=== PATIENT | female | born 1990 | race Caucasian/White ===

== ENCOUNTER 2018-08-20 19:13 | Inpatient (IN) | payer OTHER ==
[2018-08-20] MEDS: KETOROLAC 30 MG INJ IV (21:15)
[2018-08-20] MEDS: SOD CHLORIDE 0.9% 1,000 ML IV ×2 (21:18→23:38)
[2018-08-20] MEDS ORDERED: ONDANSETRON 4 MG INJ IV (22:30)
[2018-08-20] MEDS ORDERED: NACL 0.9% 3 ML SYG IV (22:30)
[2018-08-21] MEDS ORDERED: CLINDAMYCIN 600 MG/D5W (PMX) 50 ML IVPB
[2018-08-21 00:31] LABS: ADD MAN DIFF? NO
[2018-08-21 00:34] LABS: BASOPHILS % 0.4 % (0.0-2.0); EOSINOPHILS # 0.1 10^3/ul (0.0-0.5); EOSINOPHILS % 2.2 % (0.0-7.0); HEMATOCRIT 35.7 % (37.0-47.0); HEMOGLOBIN 11.6 g/dl (12.0-16.0); LYMPHOCYTES # 1.5 10^3/ul (0.8-2.9); LYMPHOCYTES % 29.8 % (15.0-51.0); MEAN CORPUSCULAR HEMOGLOBIN 31.4 pg (29.0-33.0); MEAN CORPUSCULAR HGB CONC 32.5 g/dl (32.0-37.0); MEAN CORPUSCULAR VOLUME 96.7 fl (82.0-101.0); MEAN PLATELET VOLUME 9.9 fl (7.4-10.4); MONOCYTE # 0.6 10^3/ul (0.3-0.9); MONOCYTES % 12.4 % (0.0-11.0); NEUTROPHIL # 2.7 10^3/ul (1.6-7.5); NEUTROPHILS % 54.6 % (39.0-77.0); PLATELET COUNT 190 10^3/UL (140-415); RED BLOOD COUNT 3.69 10^6/ul (4.20-5.40); RED CELL DISTRIBUTION WIDTH 13.6 % (11.5-14.5)
[2018-08-21 00:34] LABS: WHITE BLOOD COUNT 4.9 10^3/ul (4.8-10.8)
[2018-08-21 00:55] LABS: PHOSPHORUS 3.3 mg/dl (2.5-4.9)
[2018-08-21] MEDS: CLINDAMYCIN 600 MG/D5W (PMX) 50 ML IVPB ×3 (03:50→20:06)
[2018-08-21] MEDS: traMADol 50 MG TAB PO ×4 (03:50→22:18)
[2018-08-21 04:00] LABS: ADD UMIC YES; UR ASCORBIC ACID NEGATIVE (NEGATIVE); UR BILIRUBIN (Dip) NEGATIVE (NEGATIVE); UR BLOOD (Dip) 2+ mg/dL (NEGATIVE); UR CLARITY SLIGHTLY CLOUDY (CLEAR); UR COLOR YELLOW (YELLOW); UR GLUCOSE (Dip) NEGATIVE (NEGATIVE); UR KETONES (Dip) TRACE mg/dL (NEGATIVE); UR LEUKOCYTE ESTERASE (Dip) 2+ Leu/ul (NEGATIVE); UR NITRITE (Dip) NEGATIVE (NEGATIVE); UR RBC 6 /HPF (0-5); UR SPECIFIC GRAVITY (Dip) 1.014 (1.003-1.030); UR SQUAMOUS EPITHELIAL CELL FEW /HPF (FEW); UR TOTAL PROTEIN (Dip) NEGATIVE (NEGATIVE); UR UROBILINOGEN (Dip) 2+ mg/dL (NEGATIVE); UR WBC 62 /HPF (0-5)
[2018-08-21 04:55] LABS: AMPHETAMINE/METHAMPHETAMINE Negative (NEGATIVE); BARBITURATES Negative (NEGATIVE); BENZODIAZEPINES Negative (NEGATIVE); CANNABINOIDS Negative (NEGATIVE); COCAINE Negative (NEGATIVE); OPIATES Positive (NEGATIVE)
[2018-08-21] MEDS: SOD CHLORIDE 0.9% 1,000 ML IV ×2 (09:00→16:11)
[2018-08-21] MEDS ORDERED: VANCOMYCIN IV PER PHARMACY XX (10:00)
[2018-08-21] MEDS ORDERED: CEFEPIME 1GM/50 ML (PMX) 50 ML IVPB (10:00)
[2018-08-21 10:24] LABS: HAAIG REFLEX REFLEX FILED
[2018-08-21 11:00] LABS: ALBUMIN 2.9 g/dl (3.3-4.9); ALBUMIN/GLOBULIN RATIO 0.96; ALKALINE PHOSPHATASE 264 IU/L (42-121); ANION GAP 9 (5-13); ASPARTATE AMINO TRANSFERASE 167 IU/L (15-46); BILIRUBIN,INDIRECT 0.3 mg/dl (0-1.1); BILIRUBIN,TOTAL 0.3 mg/dl (0.2-1.3); BLOOD UREA NITROGEN 6 mg/dl (7-20); CALCIUM 8.5 mg/dl (8.4-10.2); CARBON DIOXIDE 24 mmol/L (21-31); CHLORIDE 107 mmol/L (97-110); CREATININE 0.44 mg/dl (0.44-1.00); Estimated GFR > 60 mL/min (>60); GLUCOSE 102 mg/dl (70-220); POTASSIUM 4.2 mmol/L (3.5-5.1); SODIUM 140 mmol/L (135-144); TOTAL PROTEIN 5.9 g/dl (6.1-8.1)
[2018-08-21 11:11] LABS: ALANINE AMINOTRANSFERASE 1292 IU/L (13-69)
[2018-08-21 11:28] LABS: HEPATITIS B SURFACE ANTIGEN NEGATIVE (NEGATIVE)
[2018-08-21 11:45] LABS: HEPATITIS B SURFACE ANTIBODY POSITIVE (NEGATIVE)
[2018-08-21 11:46] LABS: HEPATITIS B CORE ANTIBODY NEGATIVE (NEGATIVE); HEPATITIS C VIRAL ANTIBODY NEGATIVE (NEGATIVE)
[2018-08-21] MEDS: VANCOMYCIN 1 GM 250 ML IVPB (12:17)
[2018-08-21] MEDS: SOD CHLORIDE 0.9% 100 ML (14:52)
[2018-08-21] MEDS: IOHEXOL 300MG/ML 150 ML BTL (14:52)
[2018-08-21] MEDS: VANCOMYCIN 750 MG in SOD CHLORIDE 0.9% 150 ML IVPB (21:31)
[2018-08-22] MEDS: CLINDAMYCIN 600 MG/D5W (PMX) 50 ML IVPB ×3 (04:29→21:24)
[2018-08-22] MEDS: traMADol 50 MG TAB PO ×2 (04:33→10:11)
[2018-08-22] MEDS: SOD CHLORIDE 0.9% 1,000 ML IV (05:00)
[2018-08-22] MEDS: VANCOMYCIN 750 MG in SOD CHLORIDE 0.9% 150 ML IVPB ×2 (05:31→19:01)
[2018-08-22 05:57] LABS: ADD MAN DIFF? NO
[2018-08-22 06:07] LABS: BASOPHILS % 0.3 % (0.0-2.0); EOSINOPHILS # 0.2 10^3/ul (0.0-0.5); EOSINOPHILS % 2.6 % (0.0-7.0); HEMATOCRIT 35.2 % (37.0-47.0); HEMOGLOBIN 11.7 g/dl (12.0-16.0); LYMPHOCYTES # 1.8 10^3/ul (0.8-2.9); LYMPHOCYTES % 28.9 % (15.0-51.0); MEAN CORPUSCULAR HEMOGLOBIN 32.1 pg (29.0-33.0); MEAN CORPUSCULAR HGB CONC 33.2 g/dl (32.0-37.0); MEAN CORPUSCULAR VOLUME 96.4 fl (82.0-101.0); MEAN PLATELET VOLUME 10.3 fl (7.4-10.4); MONOCYTE # 0.7 10^3/ul (0.3-0.9); MONOCYTES % 10.6 % (0.0-11.0); NEUTROPHIL # 3.5 10^3/ul (1.6-7.5); NEUTROPHILS % 56.8 % (39.0-77.0); PLATELET COUNT 193 10^3/UL (140-415); RED BLOOD COUNT 3.65 10^6/ul (4.20-5.40); RED CELL DISTRIBUTION WIDTH 13.4 % (11.5-14.5)
[2018-08-22 06:07] LABS: WHITE BLOOD COUNT 6.1 10^3/ul (4.8-10.8)
[2018-08-22 06:31] LABS: ALANINE AMINOTRANSFERASE 975 IU/L (13-69); ALBUMIN 3.1 g/dl (3.3-4.9); ALBUMIN/GLOBULIN RATIO 0.96; ALKALINE PHOSPHATASE 225 IU/L (42-121); ANION GAP 10 (5-13); ASPARTATE AMINO TRANSFERASE 124 IU/L (15-46); BILIRUBIN,INDIRECT 0.3 mg/dl (0-1.1); BILIRUBIN,TOTAL 0.3 mg/dl (0.2-1.3); BLOOD UREA NITROGEN 3 mg/dl (7-20); CALCIUM 8.5 mg/dl (8.4-10.2); CARBON DIOXIDE 23 mmol/L (21-31); CHLORIDE 107 mmol/L (97-110); CREATININE 0.43 mg/dl (0.44-1.00); Estimated GFR > 60 mL/min (>60); GLUCOSE 93 mg/dl (70-220); POTASSIUM 3.9 mmol/L (3.5-5.1); SODIUM 140 mmol/L (135-144); TOTAL PROTEIN 6.3 g/dl (6.1-8.1)
[2018-08-22 12:49] LABS: VANCOMYCIN,TROUGH 5.4 ug/ml (10.0-20.0)
[2018-08-22] MEDS ORDERED: LIDOCAINE 1% (MPF) 5 ML VIAL SC ×2 (15:00→15:30)
[2018-08-22] MEDS: ACETAMINOPHEN 325 MG TAB PO (15:22)
[2018-08-22] MEDS: HYDROCODONE/APAP (5/325) TAB PO ×2 (16:56→21:41)
[2018-08-22] MEDS: morphine 4 MG/ML VIAL IV (18:54)
[2018-08-23] MEDS: SOD CHLORIDE 0.9% 1,000 ML IV ×3 (00:45→17:13)
[2018-08-23] MEDS: VANCOMYCIN 750 MG in SOD CHLORIDE 0.9% 150 ML IVPB ×3 (02:35→18:36)
[2018-08-23] MEDS: morphine 4 MG/ML VIAL IV ×2 (02:47→08:13)
[2018-08-23] MEDS: CLINDAMYCIN 600 MG/D5W (PMX) 50 ML IVPB ×3 (04:42→20:15)
[2018-08-23 11:18] LABS: C-REACTIVE PROTEIN 1.1 mg/dl (0.0-0.9)
[2018-08-23 11:58] LABS: ERYTHROCYTE SEDIMENTATION RATE 48 mm/Hr (0-20)
[2018-08-23] MEDS: KETOROLAC 15 MG INJ IV ×3 (12:27→23:50)
[2018-08-23] MEDS: HYDROCODONE/APAP (5/325) TAB PO ×2 (14:12→20:15)
[2018-08-24] MEDS: VANCOMYCIN 750 MG in SOD CHLORIDE 0.9% 150 ML IVPB ×2 (02:44→11:20)
[2018-08-24] MEDS: CLINDAMYCIN 600 MG/D5W (PMX) 50 ML IVPB ×2 (05:03→13:27)
[2018-08-24] MEDS: KETOROLAC 15 MG INJ IV ×3 (05:03→17:33)
[2018-08-24] MEDS: SOD CHLORIDE 0.9% 1,000 ML IV ×2 (07:00→13:27)
[2018-08-24 07:09] LABS: ALANINE AMINOTRANSFERASE 530 IU/L (13-69); ALBUMIN 3.1 g/dl (3.3-4.9); ALBUMIN/GLOBULIN RATIO 0.86; ALKALINE PHOSPHATASE 203 IU/L (42-121); ANION GAP 8 (5-13); ASPARTATE AMINO TRANSFERASE 75 IU/L (15-46); BILIRUBIN,INDIRECT 0.2 mg/dl (0-1.1); BILIRUBIN,TOTAL 0.2 mg/dl (0.2-1.3); BLOOD UREA NITROGEN 7 mg/dl (7-20); CALCIUM 8.7 mg/dl (8.4-10.2); CARBON DIOXIDE 26 mmol/L (21-31); CHLORIDE 108 mmol/L (97-110); CREATININE 0.46 mg/dl (0.44-1.00); Estimated GFR > 60 mL/min (>60); GLUCOSE 108 mg/dl (70-220); POTASSIUM 4.1 mmol/L (3.5-5.1); SODIUM 142 mmol/L (135-144); TOTAL PROTEIN 6.7 g/dl (6.1-8.1)
[2018-08-24 10:49] LABS: VANCOMYCIN,TROUGH 9.4 ug/ml (10.0-20.0)
[2018-08-24 15:44] LABS: RHEUMATOID FACTOR NEGATIVE (NEGATIVE)
[2018-08-24] MEDS ORDERED: VANCOMYCIN 1 GM 250 ML IVPB (18:00)
[2018-08-26 11:21] LABS: ANA SCREEN NEGATIVE (NEGATIVE)
[2018-08-26 15:52] LABS: ANTI-DNA (DOUBLE STRANDED) 210 U/mL (< 301)
[2018-08-26 17:26] LABS: CYCLIC CITRULLINATED PEP IGG <16 UNITS
== END 2018-08-24 18:51 | disposition home or self-care (01) | DRG 603 ==
LOC: PP2 19:13
PROVIDERS: Internal Medicine
PROC: 02HV33Z Insertion of Infusion Device into Superior Vena Cava, Percutaneous Approach (ICD-10-PCS; principal; 2018-08-22)
DX: L03.114 Cellulitis of left upper limb (principal); L03.113 Cellulitis of right upper limb; R74.0 Nonspecific elevation of levels of transaminase and lactic acid dehydrogenase [LDH]; F15.10 Other stimulant abuse, uncomplicated; F14.10 Cocaine abuse, uncomplicated; F32.9 Major depressive disorder, single episode, unspecified; F17.200 Nicotine dependence, unspecified, uncomplicated
CPT/HCPCS: 36569; 71045; 73130-50; 73200; 76937; 80053; 80202; 80307; 81001; 83735; 84100; 84702; 85025; 85651; 86038; 86140; 86200; 86226; 86430; 86704; 86706; 86709; 86803; 87040; 87081; 87340; 90686; 97165; 99217; G0378